=== PATIENT | male | born 1995 | race Caucasian/White ===

== ENCOUNTER 2024-05-19 23:52 | Emergency (ER) | payer OTHER, SELFPAY ==
[2024-05-19 23:57] VITALS: BP 125/79; PULSE 65; RESP 16; TEMP 36.8; O2SAT 98; BMI 25.1
--- NOTE | 2024-05-20 00:04 | ED.ABDPAIN ---
HPI - Abdominal Pain General Chief Complaint: Abdominal Pain Stated Complaint: abd pain with lump on left side Time Seen by Provider: 05/20/24 00:04 History of Present Illness HPI narrative: 28-year-old male describes intermittent past sensation of lump in his left anterior abdomen, apparently it was present earlier today, palpated by his as well, the seemed to be able to push it away, with a pinching popping like sensation. No history of hernia repair in that region. History of remote bilateral inguinal hernia repairs. No umbilical bellybutton area hernia repairs. No nausea or vomiting. No diarrhea. Patient is having normal bowel movements and passing gas. Review of Systems Review of Systems Narrative: See HPI Exam Narrative Exam Narrative: GENERAL: Well-developed patient, in mild distress. HEAD: Atraumatic. Normocephalic. EYES: Pupils equal round and reactive. Extraocular motions intact. No scleral icterus. No injection or drainage. ENT: Nose without bleeding, purulent drainage. Throat without erythema, tonsillar hypertrophy or exudate. Airway patent. NECK: Trachea midline. Non tender CARDIOVASCULAR: Regular rate and rhythm without murmurs, gallops, or rubs. RESPIRATORY: Clear to auscultation. Breath sounds equal bilaterally. No wheezes, rales, or rhonchi. GASTROINTESTINAL: Abdomen soft, non-tender, nondistended. I could not palpate any mass in the left middle quadrant, with Valsalva upright repositioning. No obvious periumbilical hernia. EXTREMITIES: No edema or joint tenderness. BACK: Nontender without deformity or crepitance. No flank tenderness. NEURO: AOx3. Motor functions grossly nonfocal SKIN: No rash or erythema of visible areas Initial Vital Signs Initial Vital Signs: Vital Signs Temperature 98.2 F 05/19/24 23:57 Pulse Rate 65 05/19/24 23:57 Respiratory Rate 16 05/19/24 23:57 Blood Pressure 125/79 05/19/24 23:57 Pulse Oximetry 98 05/19/24 23:57 Oxygen Delivery Method Room Air 05/19/24 23:57 Course Orders Ordered: ED Orders 05/20/24 00:16 Urine Microscopic Stat 05/20/24 00:17 Ictotest Urine Stat Vital Signs Vital signs: Vital Signs - 8 hr 05/19/24 23:57 Temperature 98.2 F Pulse Rate 65 Respiratory Rate 16 Blood Pressure 125/79 Pulse Oximetry 98 Oxygen Delivery Method Room Air MDM - Abdominal Pain Lab Data Point of care testing: Urine Dip Bedside Urine Glucose Negative Bedside Urine Bilirubin + 1 Bedside Urine Ketone - Negative Urine Specific Witten 1.020 Bedside Urine Occult Blood - Negative Bedside Urine pH 7.0 Bedside Urine Protein +/- 15 Bedside Urine Urobilinogen - Negative Bedside Urine Nitrite - Negative Bedside Urine Leukocytes - Negative Esterase MDM Narrative Medical decision making narrative: Left middle quadrant abdominal area anterior lump reported, worse with Valsalva, some discomfort pushing it away, sounds suspicious by history for ventral hernia that might be reducible. I could not appreciate any mass on my examination today, with Valsalva or without Valsalva maneuver. Nonobstructive bowel symptoms. Afebrile, sirs screen negative. Consider general surgery consultation as an outpatient. General surgery Clinic contact information providedm, though patient informed he might need referral from DOD and/or primary care. Discharged home. Return precautions discussed Discharge Plan Departure Patient Disposition: Home Clinical Impression: Abdominal pain, Ventral hernia Activity Restrictions/Additional Instructions: Intermittent left middle quadrant area discomfort, reportedly some kind of lump/mass on examination that is reducible and somewhat uncomfortable upon reduction, by history. I could not appreciate a mass on palpation at this time, however symptoms are very suspicious for a ventral hernia that sounds like it might be reducible at this time. No advanced imaging indicated at this time. If hernia is present it unfortunately can become non reducible and become stuck, and lead to incarcerated hernia, or even strangulation of hernia bowel tissue. If theere is persisting abdominal discomfort then clinical urgent reassessment indicated. Otherwise, consider outpatient consultation with general surgeon, to see if they concur with the diagnosis, and if so then query for elective surgical hernia repair options. Contact information given for local general surgeons. Return to this/nearest emergency department for any change worsening symptoms or any concerns prior Referrals: Josh Bingham MD [Physician] - Francis Mathur MD [Physician] - Provider,Yury CUMMINGS [Primary Care Provider] - Stand Alone Forms: Patient Portal/API
== END 2024-05-20 00:37 | disposition home or self-care (01) ==
PROVIDERS: Emergency Provider Emergency Medicine
DX: K43.9 Ventral hernia without obstruction or gangrene (principal); R10.9 Unspecified abdominal pain
CPT/HCPCS: 36415; 81003; 99283